=== PATIENT | male | born 1995 | race Caucasian/White ===

== ENCOUNTER 2018-02-19 17:05 | Emergency (ER) | payer OTHER ==
--- OUTSIDE RECORDS SUMMARY | 2018-02-19 17:36 | XMS REPORT | Continuity of Care Document ---
:1995 External Reference #:[id number] Author Name Bruce aCldwell MD Address [address] [place] [address] Care Team Providers Name Role Phone [facility], [facility] Care Team Information Adult School Counselor Unavailable Payers Type Date Identification Numbers Payment Provider Subscriber Policy Number: [id number] [facility] Claims Admin Jared Kilpatrick Group Number: [id number] [facility] [id number] Group Name: [place] [address] PayID: [id number] Advance Directives Description No Information Available Problems Date Description Provider Status Onset: 02/12/2018 Hypertrophy of tonsils Bruce Caldwell MD Active Family History Description No Information Available Social History Type Date Description Comments Sex Unknown Occupation Student Tobacco Use Start: Unknown Current Cigarette Smoker Smokes one cigarette daily. Tobacco Use Start: Unknown Never Smoked Cigars Tobacco Use Start: Unknown Never Smoked A Pipe Smokeless Tobacco Never Used Smokeless Tobacco ETOH Use Currently occasionally consumes alcohol Allergies, Adverse Reactions, Alerts Description No Known Drug Allergies Medications Description No Active Medications Immunizations Description No Information Available Vital Signs Date Vital Result Comment 02/12/2018 9:26am Weight 200.00 lb Weight 90.720 kg Height 71 inches 5'11" Height in cm's 180.3 cm BMI (Body Mass Index) 27.9 kg/m2 Results Description No Information Available Procedures Description No Information Available Encounters Type Date Location Provider Dx Diagnosis Office Visit 02/12/2018 Cristiane,Dorothy Caldwell J35.1 Hypertrophy of 9:45a 04/13/07 tonsils Plan of Treatment 02/12/2018 - Bruce Caldwell MDJ35.1 Hypertrophy of tonsilsComments:Options of treatment including continued medical management versus surgical treatment including tonsillectomy was discussed. Risks and complications of tonsillectomy including bleeding infection injuryto the upper aerodigestive tract possibility of bleeding requiring additional surgery, sore throat were discussed with complications in laymans terms I think he would be a candidate for tonsillectomy and possible examination of the adenoids and adenoidectomy.
[2018-02-19 20:58] VITALS: BP 117/80
--- NOTE | 2018-02-19 21:16 | ED ---
Lower Extremity - HPI Summary HPI Summary: Patient is 22-year-old male with no significant PMH presenting to the ED from [facility], he was sent here for a rule out DVT to the left lower extremity. Patient states he has been having intermittent left calf swelling and slight tenderness over the past few days, worse during the day and with ambulation, better with rest. He denies any shortness of breath. He denies any recent travel. He smokes approximately one cigarette per day. No known malignancy, or clotting disorder. He states he did not injure the area or have any trauma to the area. - History of Current Complaint Chief Complaint: EDExtremityLower Stated Complaint: LT LEG SWOLLEN Time Seen by Provider: 02/19/18 20:15 Hx Obtained From: Patient Onset of Pain: Immediate Onset/Duration: Hours Severity Initially: Moderate Severity Currently: Moderate Pain Intensity: 2 Pain Scale Used: 0-10 Numeric Timing: Constant Location: Is Discrete @ - lower extremity discomfort - calf pain Character Of Pain: Aching Associated Signs And Symptoms: Positive: Swelling. Negative: Redness, Bruising , Fever Aggravating Factor(s): Standing, Ambulation Alleviating Factor(s): Rest Able to Bear Weight: No - Risk Factors Gout Risk Factors: Negative DVT Risk Factors: Negative Septic Arthritis Risk Factor: Negative - Allergies/Home Medications Allergies/Adverse Reactions: Allergies Allergy/AdvReac Type Severity Reaction Status Date / Time No Known Allergies Allergy Verified 02/19/18 17:19 Home Medications: Home Medications NK [No Home Medications Reported] 02/19/18 [History Confirmed 02/19/18] PMH/Surg Hx/FS Hx/Imm Hx Previously Healthy: Yes - Immunization History Hx Pertussis Vaccination: No Immunizations Up to Date: Yes Infectious Disease History: No Infectious Disease History: Denies: Traveled Outside the [place] in Last 30 Days - Social History Occupation: Unemployed, Student Lives: Dormitory/Roommates Alcohol Use: None Hx Substance Use: No Substance Use Type: Reports: None Smoking Status (MU): Light Every Day Tobacco Smoker Review of Systems Constitutional: Negative Negative: Fever, Chills, Fatigue, Skin Diaphoresis Negative: Epistaxis Negative: Palpitations, Chest Pain Negative: Shortness Of Breath, Cough Genitourinary: Negative Positive: no symptoms reported, see HPI Positive: Arthralgia, Myalgia - left lower extremity pain Skin: Negative Neurological: Negative All Other Systems Reviewed And Are Negative: Yes Physical Exam Triage Information Reviewed: Yes Vital Signs On Initial Exam: Initial Vitals Temp Pulse Resp BP Pulse Ox 98.8 F 54 18 131/58 98 02/19/18 17:16 02/19/18 17:16 02/19/18 17:16 02/19/18 17:16 02/19/18 17:16 Vital Signs Reviewed: Yes Appearance: Positive: Well-Appearing, Well-Nourished Skin: Positive: Warm, Skin Color Reflects Adequate Perfusion Head/Face: Positive: Normal Head/Face Inspection Eyes: Positive: EOMI, DIANA, Conjunctiva Clear Neck: Positive: Supple, No Lymphadenopathy Respiratory/Lung Sounds: Positive: Clear to Auscultation, Breath Sounds Present Cardiovascular: Positive: RRR, Pulses are Symmetrical in both Upper and Lower Extremities Musculoskeletal: Positive: Pain @ - calf pain - without erythema or warmth Neurological: Positive: Speech Normal Psychiatric: Positive: Affect/Mood Appropriate Diagnostics - Vital Signs Vital Signs Temp Pulse Resp BP Pulse Ox 02/19/18 20:57 98.2 F 53 16 117/80 97 02/19/18 20:10 98.4 F 52 20 139/61 100 02/19/18 17:16 98.8 F 54 18 131/58 98 - Laboratory Lab Statement: Any lab studies that have been ordered have been reviewed, and results considered in the medical decision making process. Lower Extremity Course/Dx - Course Course Of Treatment: During the course of treatment, the patient is evaluated for left lower extremity discomfort and intermittent swelling. Denies any erythema or warmth to the area. He endorses no swelling at this time. He states he is ambulating well, without pain. He was sent here from [facility] to rule out a DVT. Smokes approximately one cigarette per day, denies any recent travel. DVT ultrasound study obtained which is negative for a lower extremity DVT. He will use moist heat and use ibuprofen at this time for discomfort. - Diagnoses Differential Diagnosis/HQI/PQRI: Positive: DVT, Sprain, Strain Provider Diagnoses: Pain of left calf Discharge - Sign-Out/Discharge Documenting (check all that apply): Patient Departure - Discharge Plan Condition: Stable Disposition: HOME Referrals: No Primary Care Phys,NOPCP [Primary Care Provider] - Additional Instructions: Moist heat to the area ibuprofen 600mg three times daily - Billing Disposition and Condition Condition: STABLE Disposition: Home
== END 2018-02-19 20:57 | disposition home or self-care (01) ==
LOC: ED 17:05
DX: M79.605 Pain in left leg (principal); R60.0 Localized edema; F17.210 Nicotine dependence, cigarettes, uncomplicated
CPT/HCPCS: 99282